=== PATIENT | female | born 2000 | race Caucasian/White ===

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

== ENCOUNTER 2018-04-16 12:24 | Emergency (ER) | payer OTHER ==
[2018-04-16 12:36] VITALS: BP 126/74
[2018-04-16] MEDS ORDERED: Acetaminophen TAB* 325 MG PO ONE (12:42)
--- NOTE | 2018-04-16 12:47 | UC ---
Throat Pain/Nasal Drew HPI - HPI Summary HPI Summary: Pt c/o sudden onset of sore throat, fever, malaise X 1 day. - History of Current Complaint Chief Complaint: UCRespiratory Stated Complaint: SORE THROAT, FEVER Time Seen by Provider: 04/16/18 12:31 Hx Obtained From: Patient Hx Last Menstrual Period: 04/08/18 ?: No Onset/Duration: Sudden Onset, Lasting Hours Severity: Moderate Pain Intensity: 4 Cough: None Associated Signs & Symptoms: Positive: Dysphagia, Fever - Epiglottits Risk Factors Epiglottis Risk Factors: Sudden Onset - Allergies/Home Medications Allergies/Adverse Reactions: Allergies Allergy/AdvReac Type Severity Reaction Status Date / Time No Known Allergies Allergy Verified 04/16/18 12:36 PMH/Surg Hx/FS Hx/Imm Hx Previously Healthy: Yes - Surgical History Surgical History: Yes Surgery Procedure, Year, and Place: Rhinoplasty s/p fracture, 2011, [facility] - Family History Known Family History: Positive: Hypertension Negative: Diabetes - Social History Occupation: Student - [employer] Lives: With Family Alcohol Use: Occasionally Substance Use Type: None Smoking Status (MU): Never Smoked Tobacco Have You Smoked in the Last Year: No - Immunization History Vaccination Up to Date: Yes Review of Systems Constitutional: Fever, Chills, Fatigue Skin: Negative Eyes: Negative ENT: Sore Throat Respiratory: Negative Cardiovascular: Negative Gastrointestinal: Negative Genitourinary: Negative Motor: Negative Neurovascular: Negative Musculoskeletal: Myalgia Neurological: Negative Psychological: Negative Is Patient Immunocompromised?: No All Other Systems Reviewed And Are Negative: Yes Physical Exam Triage Information Reviewed: Yes Appearance: Ill-Appearing Vital Signs: Initial Vital Signs Temp 101.9 F 04/16/18 12:31 Pulse 111 04/16/18 12:31 Resp 16 04/16/18 12:31 BP 126/74 04/16/18 12:31 Pulse Ox 99 04/16/18 12:31 Vital Signs Reviewed: Yes Eye Exam: Normal ENT: Positive: Tonsillar swelling, Tonsillar exudate Dental Exam: Normal Neck exam: Normal Neck: Positive: Supple, Nontender Respiratory Exam: Normal Cardiovascular Exam: Normal Musculoskeletal Exam: Normal Neurological Exam: Normal Psychological Exam: Normal Skin Exam: Normal Diagnostics - Laboratory Diagnostic Studies Completed/Ordered: rapid strep: negative Throat Pain/Nasal Course/Dx - Differential Dx/Diagnosis Differential Diagnosis/HQI/PQRI: Mononucleosis, Pharyngitis, Tonsillitis Provider Diagnoses: tonsillitis Discharge - Sign-Out/Discharge Documenting (check all that apply): Patient Departure - Discharge Plan Condition: Stable Disposition: HOME Prescriptions: Fluconazole 100 MG TAB* [Diflucan 100 MG TAB*] 100 mg PO DAILY #2 tab Penicillin VK 500 MG TAB(NF) [Penicillin VK 500 mg Tab] 500 mg PO Q8H #30 tab Patient Education Materials: Tonsillitis (ED) Forms: *Work Release Referrals: Siena Bacon MD [Primary Care Provider] - If Needed - Billing Disposition and Condition Condition: STABLE Disposition: Home
[2018-04-16 18:39] LABS: ABS Basophils 0 10^3/ul (0-0.2); ABS Eosinophils 0 10^3/ul (0-0.6); ABS Lymphocytes 0.6 10^3/ul (1.0-4.8); ABS Monocytes 1.1 10^3/ul (0-0.8); ABS Nucleated RBC 0 10^3/ul; Eosinophil % 0 % (0-6); Hematocrit 38 % (35-47); Hemoglobin 13.2 g/dl (12.0-16.0); Lymphocyte % 5.9 % (25-47); Mean Corpuscular HGB Conc 35 g/dl (31-36); Mean Corpuscular Hemoglobin 31 pg (27-31); Mean Corpuscular Volume 91 fL (80-97); Mean Platelet Volume 11.7 um3 (7.4-10.4); Nucleated Red Blood Cells % 0.1; Platelet Count 210 10^3/ul (150-450); Red Blood Count 4.21 10^6/ul (4.00-5.40); Red Cell Distribution Width 13 % (10.5-15); White Blood Count 9.8 10^3/ul (3.5-10.8)
== END 2018-04-16 13:09 | disposition home or self-care (01) ==
LOC: UCCORT 12:24
DX: J03.90 Acute tonsillitis, unspecified (principal)
CPT/HCPCS: 36415; 85025; 86308; 87651; 99212; A9270-GY; G0463

== ENCOUNTER 2018-11-24 08:31 | Emergency (ER) | payer SELFPAY ==
[2018-11-24 08:48] VITALS: BP 126/67
--- NOTE | 2018-11-24 09:05 | UC ---
FLU HPI - HPI Summary HPI Summary: Patient presents to urgent care stating she's had a sore throat since yesterday. Patient states overnight she woke up feeling warm and sweaty. Patient with some mild nausea and no vomiting. Patient states this morning she states noticed she had a fever. Patient not take anything for her fever. Patient states she is able to eat and drink but it hurts. Patient states she feels very tired. No cough. No diarrhea. Patient states she is not . 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 Patient 's medications reviewed this visit. - History of Current Complaint Chief Complaint: UCGeneralIllness Stated Complaint: ST,FEVER Time Seen by Provider: 11/24/18 08:45 Hx Obtained From: Patient Hx Last Menstrual Period: 10/2018 Onset/Duration: Sudden Onset Severity Currently: Mild Severity Initially: Moderate Pain Intensity: 7 Pain Scale Used: 0-10 Numeric - Allergy/Home Medications Allergies/Adverse Reactions: Allergies Allergy/AdvReac Type Severity Reaction Status Date / Time No Known Allergies Allergy Verified 11/24/18 08:43 Home Medications: Home Medications Ibuprofen TAB* [Advil TAB*] 400 mg PO Q6H PRN 11/24/18 [History Confirmed ] PMH/Surg Hx/FS Hx/Imm Hx Previously Healthy: Yes - Surgical History Surgical History: Yes Surgery Procedure, Year, and Place: Rhinoplasty s/p fracture, 2011, [facility] - Family History Known Family History: Positive: Hypertension Negative: Diabetes - Social History Occupation: Employed Full-time Lives: With Family Alcohol Use: Occasionally Substance Use Type: None Smoking Status (MU): Never Smoked Tobacco Have You Smoked in the Last Year: No - Immunization History Vaccination Up to Date: Yes Review of Systems All Other Systems Reviewed And Are Negative: Yes Constitutional: Positive: Fever, Chills, Fatigue ENT: Positive: Sore Throat, Sinus Congestion Respiratory: Positive: Cough Gastrointestinal: Positive: Nausea. Negative: Abdominal Pain, Vomiting, Diarrhea Is Patient Immunocompromised?: No Physical Exam - Summary Physical Exam Summary: Vital Signs Reviewed: Yes A+Ox3, no distress, tired appearing Eyes: Conjunctiva Clear, VERONIKA. EOM intact and full ENT: Hearing grossly normal TM x 2 clear, nasal congestion, + PND, mmoist, uvula midline, no exudate, no erythema Neck: Positive: Supple Respiratory: Positive: No respiratory distress, No accessory muscle use + CTA throughout no w/r Cardiovascular: RRR- borderline tachy, nl s1, s2 no m/r CBT <2 sec abd soft + BS nt/nd no guarding, no distension Musculoskeletal: Full AROM c spine, RAMEY x 4 without difficulty Strength Intact , ROM Intact Neurological: Positive: Alert, + sensation throughout Psychological: Positive: Normal Response To Family Skin: Positive: no rash, no ecchymosis, warm - flushed cheeks Triage Information Reviewed: Yes Vital Signs: Initial Vital Signs Temp 98.4 F 11/24/18 08:43 Pulse 118 11/24/18 08:43 Resp 17 11/24/18 08:43 BP 126/67 11/24/18 08:43 Pulse Ox 99 11/24/18 08:43 Re-Evaluation - Re-Evaluation First Eval Comment: strep and flu neg. supportive care. work note for Satn. reviewed care plan - pt in agreement Flu Course/Dx - Course Course Of Treatment: Patient presents to urgent care with 24 hours progressive sore throat fever bodyache nausea. No vomiting. Patient is not taking anything for her symptoms. Patient with exposures to sick contacts at work as well as at home. Patient states she is not . On exam patient mildly tachycardic. Patient feels warm ago she was normothermic at triage Exam significant for some tachycardia sinus congestion postnasal drip. Rapid flu was negative. We'll check rapid strep. We'll give Tylenol. Discussed with patient secretion precaution, humidified air, hydrated, Motrin/ Tylenol return precautions. Patient states understanding and agreement with plan. Patient does get back to work until Saturday. 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 Drink plenty of non-alcoholic, non-caffinated beverages. - Alternate ibuprofen (Advil, Motrin) 600mg and Tylenol 1000mg every 3 hours for pain or fever. Take with food. Do NOT take for more than 4-5 days. - These infections are spread by secretions - do NOT share eating or drinking utensils - clean items you share with other people such as cell phones, computer mouse, TV remote, computer tablets,etc. Once you start to feel better, change your toothbrush and your pillowcase. - get plenty of restful sleep - gargle and spit with warm, salt water - humidify the air in the room where you sleep - boil water, run a hot steam shower, vaporizer, cups of water by heat register - okay to take over the counter decongestant and cough medication - contact your doctor or return with questions or concerns - Billing Disposition and Condition Condition: STABLE Disposition: Home
[2018-11-24 09:08] LABS: Influenza A Molecular NEGATIVE (Negative); Influenza B Molecular NEGATIVE (Negative)
[2018-11-24] MEDS ORDERED: Acetaminophen TAB* 325 MG PO ONE (09:13)
== END 2018-11-24 09:43 | disposition home or self-care (01) ==
LOC: UCCORT 08:31
DX: B34.9 Viral infection, unspecified (principal); J02.9 Acute pharyngitis, unspecified; R11.0 Nausea; R09.81 Nasal congestion; R09.82 Postnasal drip; R00.0 Tachycardia, unspecified
CPT/HCPCS: 87651; 99212; A9270-GY; G0463

== ENCOUNTER 2019-07-05 13:36 | Emergency (ER) | payer BC, OTHER ==
[2019-07-05 14:29] VITALS: BP 135/78
--- NOTE | 2019-07-05 14:55 | UC ---
Ear Complaint HPI - HPI Summary HPI Summary: C/O left ear pain. Tender to push on the ear. No cough, congestion or sore throat. No fevers. - History of Current Complaint Chief Complaint: UCEar Stated Complaint: EAR PAIN Time Seen by Provider: 07/05/19 14:49 Hx Obtained From: Patient Hx Last Menstrual Period: 06/16/19 ?: No Onset/Duration: Sudden Onset, Lasting Days - 1, Worse Since - today Severity Initially: Mild Severity Currently: Moderate Pain Intensity: 7 Aggravating Factors: Other - touch Alleviating Factors: Nothing Associated Signs/Symptoms: Positive: Hearing Loss. Negative: Discharge, Foreign Body Sensation, Trauma to Ear, Swelling @, URI Symptoms - Allergies/Home Medications Allergies/Adverse Reactions: Allergies Allergy/AdvReac Type Severity Reaction Status Date / Time No Known Allergies Allergy Verified 07/05/19 14:22 PMH/Surg Hx/FS Hx/Imm Hx Previously Healthy: Yes - Surgical History Surgical History: Yes Surgery Procedure, Year, and Place: Rhinoplasty s/p fracture, [facility], [facility] - Family History Known Family History: Positive: Hypertension, Diabetes - Social History Occupation: Employed Full-time Lives: With Family Alcohol Use: Occasionally Substance Use Type: None Smoking Status (MU): Never Smoked Tobacco Have You Smoked in the Last Year: No - Immunization History Vaccination Up to Date: Yes Review of Systems All Other Systems Reviewed And Are Negative: Yes ENT: Positive: Ear Ache Physical Exam Triage Information Reviewed: Yes Appearance: Well-Appearing, Well-Nourished, Pain Distress - mild Vital Signs: Initial Vital Signs Temp 98.2 F 07/05/19 14:23 Pulse 73 07/05/19 14:23 Resp 16 07/05/19 14:23 BP 135/78 07/05/19 14:23 Pulse Ox 100 07/05/19 14:23 Vital Signs Reviewed: Yes Eyes: Positive: Conjunctiva Clear ENT: Positive: Pharynx normal, Nasal congestion, TMs normal, Other - Tenderness with redness and swelling on the left ear canal Neck exam: Normal Respiratory Exam: Normal Cardiovascular Exam: Normal Musculoskeletal Exam: Normal Neurological Exam: Normal Psychological Exam: Normal Skin Exam: Normal Ear Complaint Course/Dx - Differential Dx/Diagnosis Differential Diagnosis/HQI/PQRI: Otitis Externa, Otitis Media, Pharyngitis, URI Provider Diagnosis: Swimmer's ear of left side Discharge ED - Sign-Out/Discharge Documenting (check all that apply): Patient Departure All imaging exams completed and their final reports reviewed: No Studies - Discharge Plan Condition: Stable Disposition: HOME Prescriptions: Neomyc/Polym/HC 1% OTIC SUSP* [Cortisporin Otic Susp 1%*] 4 drop LEFT EAR TID # 1 btl Patient Education Materials: Otitis Externa (ED), Colistin/Neomycin/ Hydrocortisone (Into the ear) Referrals: Siena Bacon MD [Primary Care Provider] - - Billing Disposition and Condition Condition: STABLE Disposition: Home
== END 2019-07-05 15:04 | disposition home or self-care (01) ==
LOC: UCCORT 13:36
DX: H60.332 Swimmer's ear, left ear (principal); R09.81 Nasal congestion
CPT/HCPCS: 99212; G0463

== ENCOUNTER 2019-11-14 08:05 | Emergency (ER) | payer BC ==
[2019-11-14 08:19] VITALS: BP 116/75
--- NOTE | 2019-11-14 08:30 | UC ---
Respiratory Complaint HPI - HPI Summary HPI Summary: Pt states has been coughing and congestion for the past week. Pt denies fever. Sore throat from the coughing so much. denies n/v. denies known exposures to covid or travel. - History of Current Complaint Chief Complaint: UCGeneralIllness Stated Complaint: COUGH Time Seen by Provider: 11/14/19 08:27 Hx Obtained From: Patient Hx Last Menstrual Period: sometime in Oct Pain Intensity: 0 Aggravating Factors: Nothing Alleviating Factors: Nothing - Allergies/Home Medications Allergies/Adverse Reactions: Allergies Allergy/AdvReac Type Severity Reaction Status Date / Time No Known Allergies Allergy Verified 11/14/19 08:20 Home Medications: Home Medications Albuterol HFA INHALER* [Ventolin HFA Inhaler*] 2 puff INH Q4H PRN #1 mdi [Rx] Benzonatate CAP* [Tessalon 100 MG CAP*] 100 mg PO BID 10 Days #20 cap 11/14/19 [ Rx] Dextromethorphan Polistirex [Delsym] 30 mg PO BID PRN 11/14/19 [History Confirmed 11/14/19] Sertraline HCl [Zoloft] 50 mg PO DAILY 11/14/19 [History Confirmed 11/14/19] PMH/Surg Hx/FS Hx/Imm Hx - Additional Past Medical History Additional PMH: no chronic illness Previously Healthy: Yes - Surgical History Surgical History: Yes Surgery Procedure, Year, and Place: Rhinoplasty s/p fracture, 2011, [facility] - Family History Known Family History: Positive: Hypertension, Diabetes - Social History Alcohol Use: Occasionally Substance Use Type: None Smoking Status (MU): Never Smoked Tobacco Have You Smoked in the Last Year: No - Immunization History Vaccination Up to Date: Yes Review of Systems All Other Systems Reviewed And Are Negative: Yes Constitutional: Negative: Fever, Chills, Fatigue Skin: Negative: Rash ENT: Positive: Sinus Congestion. Negative: Sore Throat, Ear Ache, Nasal Discharge, Sinus Pain/Tenderness Respiratory: Positive: Shortness Of Breath, Cough. Negative: Other - wheezing Cardiovascular: Negative: Palpitations, Chest Pain Gastrointestinal: Negative: Vomiting, Diarrhea Physical Exam Triage Information Reviewed: Yes Appearance: Well-Appearing Vital Signs: Initial Vital Signs Temp 98.7 F 11/14/19 08:15 Pulse 72 11/14/19 08:15 Resp 14 11/14/19 08:15 BP 116/75 11/14/19 08:15 Pulse Ox 100 11/14/19 08:15 Vital Signs Reviewed: Yes Eyes: Positive: Conjunctiva Clear ENT: Positive: Pharynx normal, TMs normal, Uvula midline Neck: Positive: Supple, Nontender, No Lymphadenopathy Respiratory: Positive: Lungs clear Cardiovascular Exam: Normal Neurological: Positive: Alert Skin: Negative: Rashes Respiratory Course/Dx - Course Course Of Treatment: cough and congestion for 1 wk. no concerning exposures, exam was unremarkable. vitals good. rapid flu neg. disc ways to manage symptoms. - Differential Dx/Diagnosis Differential Diagnosis/HQI/PQRI: Influenza, Laryngitis, Lower Resp Infection, Other Provider Diagnosis: Bronchitis Discharge ED - Sign-Out/Discharge Documenting (check all that apply): Patient Departure All imaging exams completed and their final reports reviewed: No Studies - Discharge Plan Condition: Good Disposition: HOME Prescriptions: Albuterol HFA INHALER* [Ventolin HFA Inhaler*] 2 puff INH Q4H PRN #1 mdi PRN Reason: Wheezing Benzonatate CAP* [Tessalon 100 MG CAP*] 100 mg PO BID 10 Days #20 cap Patient Education Materials: Acute Bronchitis (ED) Referrals: Siena Bacon MD [Primary Care Provider] - Additional Instructions: If you get worsening breathing symptoms please go to the emergency room. - Billing Disposition and Condition Condition: GOOD Disposition: Home
[2019-11-14 08:51] LABS: Influenza A Molecular Negative (Negative); Influenza B Molecular Negative (Negative)
== END 2019-11-14 09:11 | disposition home or self-care (01) ==
LOC: UCCORT 08:05
DX: J40 Bronchitis, not specified as acute or chronic (principal); J02.9 Acute pharyngitis, unspecified
CPT/HCPCS: 99212; G0463